=== PATIENT | female | born 2000 | race American Indian/Alaskan Native ===

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

== ENCOUNTER 2022-12-30 17:40 | Emergency (ER) | payer BC, MEDICAID ==
[~2022-12-30] VITALS: Ht 152.4 cm; Wt 59.1 kg
[2022-12-30 18:18] VITALS: BP 112/71
[2022-12-30] MEDS ORDERED: ibuprofen 200mg tablet PO ONE (19:05)
== END 2022-12-30 20:56 | disposition home or self-care (01) ==
LOC: ER 17:41
DX: S92.355A Nondisplaced fracture of fifth metatarsal bone, left foot, initial encounter for closed fracture (principal); Z20.822 Contact with and (suspected) exposure to COVID-19; J02.9 Acute pharyngitis, unspecified; X58.XXXA Exposure to other specified factors, initial encounter; Y93.9 Activity, unspecified; Y92.89 Other specified places as the place of occurrence of the external cause; Y99.8 Other external cause status
CPT/HCPCS: 73610; 73630; 87081; 87635; 87880; 99284; C9803; L4360; 99285

== ENCOUNTER 2023-02-24 15:25 | Emergency (ER) | payer BC, MEDICAID ==
[~2023-02-24] VITALS: Ht 152.4 cm; Wt 54.5 kg
[2023-02-24 15:28] VITALS: BP 115/70
[2023-02-24] MEDS ORDERED: dexamethasone sod phosphate 10mg/ml inj PO STA (17:27)
[2023-02-24] MEDS ORDERED: LIDOcaine Viscous 15ml cup MM STA (17:27)
[2023-02-24] MEDS ORDERED: clindamycin 150mg capsule PO ONE (17:30)
[2023-02-24] MEDS ORDERED: BENZ1LOZ74 PO (17:42)
[2023-02-24] MEDS ORDERED: CEPH-585 PO (17:42)
[2023-02-24] MEDS ORDERED: cephalexin 500mg capsule PO ONE (17:45)
== END 2023-02-24 18:21 | disposition home or self-care (01) ==
LOC: ER 15:25
DX: J02.0 Streptococcal pharyngitis (principal); B95.0 Streptococcus, group A, as the cause of diseases classified elsewhere; Z88.0 Allergy status to penicillin; Z91.018 Allergy to other foods; Z79.899 Other long term (current) drug therapy
CPT/HCPCS: 87880; 99284; J1100